=== PATIENT | female | born 1945 | race Caucasian/White ===

== ENCOUNTER 2018-12-14 06:35 | Emergency (ER) | payer MEDICARE, OTHER ==
[~2018-12-14] VITALS: Ht 165.1 cm; Wt 75.7 kg
[~2018-12-14 06:35] MED LIST: CRESTOR5 MG PO; METF10007 PO
[2018-12-14 06:50] VITALS: BP 170/72
--- NOTE | 2018-12-14 06:57 | PHYS DOC ---
Past Medical History Past Medical History: Diabetes-Type II Past Surgical History: No Surgical History Alcohol Use: Occasionally Drug Use: None Adult General Chief Complaint Chief Complaint: SORE THROAT HPI HPI Patient is a 73 year old female presenting with sore throat and ear pain. She had a scratchy throat last night woke up today had significant left ear pain she has had a history of ruptured tympanic membrane in the past no fever no shortness of breath mild headache no cough no chest pain no other symptoms pain is moderate dull worsening with time Review of Systems Review of Systems Constitutional: Denies fever or chills [] Eyes: Denies change in visual acuity, redness, or eye pain [] HENT: Musculoskeletal: Denies back pain or joint pain [] Integument: Denies rash or skin lesions [] Neurologic: Denies headache, focal weakness or sensory changes [] Endocrine: Denies polyuria or polydipsia [] All other systems were reviewed and found to be within normal limits, except as documented in this note. Allergies Allergies Allergies Coded Allergies Type Severity Reaction Last Updated Verified No Known Drug Allergies 04/04/14 No Physical Exam Physical Exam Constitutional: Well developed, well nourished, no acute distress, non-toxic appearance. [] HENT: Normocephalic, atraumatic, bilateral external ears normal, oropharynx moist, no oral exudates, nose normal. []Mild erythema of the oropharynx there is evidence of mild otitis externa with mild erythema of the ear canal in the left ear the TM appears essentially normal there may be a small amount of fluid behind it but no vomiting or redness Eyes: PERRLA, EOMI, conjunctiva normal, no discharge. [] Neck: Normal range of motion, no tenderness, supple, no stridor. [] Cardiovascular:Heart rate regular rhythm, no murmur [] Lungs & Thorax: Bilateral breath sounds clear to auscultation [] Abdomen: Bowel sounds normal, soft, no tenderness, no masses, no pulsatile masses. [] Skin: Warm, dry, no erythema, no rash. [] Back: No tenderness, no CVA tenderness. [] Extremities: No tenderness, no cyanosis, no clubbing, ROM intact, no edema. [] Neurologic: Alert and oriented X 3, normal motor function, normal sensory function, no focal deficits noted. [] Psychologic: Affect normal, judgement normal, mood normal. [] Current Patient Data Vital Signs Vital Signs Date Time Temp Pulse Resp B/P (MAP) Pulse Ox O2 Delivery O2 Flow Rate FiO2 12/14/18 06:50 99.1 90 20 170/72 (104) 95 Room Air 99.1 Lab Values Laboratory Tests Test 12/14/18 06:50 Group A Streptococcus Rapid Negative (NEGATIVE) EKG EKG [] Radiology/Procedures Radiology/Procedures [] Course & Med Decision Making Course & Med Decision Making Pertinent Labs and Imaging studies reviewed. (See chart for details) []Rapid strep was negative suspect otitis externa treatment provided as such Dragon Disclaimer Dragon Disclaimer This electronic medical record was generated, in whole or in part, using a voice recognition dictation system. Departure Departure Impression: Primary Impression: Otitis externa Disposition: 01 HOME, SELF-CARE Condition: STABLE Referrals: SOCORRO THOMAS MD (PCP) Scripts Ciprofloxacin Hcl/Dexameth (CIPRODEX OTIC SUSPENSION) 7.5 Ml Drops.susp 4 DROP LEFT EAR BID for 5 Days, #7.5 ML Prov: HANNAH BARAJAS MD 12/14/18 HANNAH BARAJAS MD Dec 14, 2018 06:57
[2018-12-14] MEDS ORDERED: CIPR7.5D LEFT EAR (07:34)
== END 2018-12-14 07:40 | disposition home or self-care (01) ==
LOC: ER 06:35
DX: H60.8X2 Other otitis externa, left ear (principal); J02.9 Acute pharyngitis, unspecified; E11.9 Type 2 diabetes mellitus without complications
CPT/HCPCS: 87070; 87880; 99284